=== PATIENT | female | born 1990 | race Caucasian/White ===

== ENCOUNTER 2017-06-21 18:14 | Emergency (ER) | payer SELFPAY ==
[2017-06-21 18:16] VITALS: BP 109/58; PULSE 115; RESP 20; TEMP 98.8; O2SAT 99
[2017-06-21] MEDS ORDERED: METH10TA PO (19:37)
[2017-06-21] MEDS ORDERED: SODIUM CHLOR 0.9% 1000 ML INJ 1,000 ML IV SCH (19:39)
--- NOTE | 2017-06-21 19:43 | PD ---
HPI Chief Complaint: Related Problem Time Seen by Provider: 19:30 Travel History International Travel<30 days: No Contact w/Intl Traveler<30days: No Traveled to known affect area: No History of Present Illness HPI This is a 26-year-old female who is 10 weeks'gestational age based on ultrasound on May 31 revealing an intrauterine in [facility]. She is complaining of nausea and vomiting. Symptoms started 2 days ago. She reports that throughout her she has had episodes of nausea and vomiting or this is her fourth visit to the hospital for treatment of this. She has been prescribed Zofran initially and then she was prescribed Phenergan. Most recently she was prescribed Reglan which is working well however she has run out. She denies cough, congestion, chest pain, shortness breath, abdominal pain, diarrhea, vaginal bleeding, vaginal discharge. She has no other complaints. 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 HEAD: Atraumatic. Normocephalic. EYES: Pupils equal and round. No scleral icterus. No injection or drainage. ENT: No nasal bleeding or discharge. Mucous membranes pink and moist. NECK: Trachea midline. No JVD. CARDIOVASCULAR: Regular rate and rhythm. No murmur appreciated. RESPIRATORY: No accessory muscle use. Clear to auscultation. Breath sounds equal bilaterally. GASTROINTESTINAL: Abdomen soft, non-tender, nondistended. Hepatic and splenic margins not palpable. MUSCULOSKELETAL: No obvious deformities. No clubbing. No cyanosis. No edema. NEUROLOGICAL: Awake and alert. No obvious cranial nerve deficits. Motor grossly within normal limits. Normal speech. PSYCHIATRIC: Appropriate mood and affect; insight and judgment normal. Data Data Last Documented VS Vital Signs Date Time Temp Pulse Resp B/P (MAP) Pulse Ox O2 Delivery O2 Flow Rate FiO2 06/21/17 18:16 98.8 115 20 109/58 (75) 99 Room Air Orders Orders Complete Blood Count With Diff (06/21/17 18:37) Basic Metabolic Panel (Bmp) (06/21/17 18:37) Urinalysis - C+S If Indicated (06/21/17 18:37) Iv Access Insert/Monitor (06/21/17 19:39) Metoclopramide Inj (Reglan Inj) (06/21/17 19:45) Sodium Chlor 0.9% 1000 Ml Inj (Ns 1000 M (06/21/17 19:39) Urine Culture (06/21/17 19:50) Labs Laboratory Tests Test 06/21/17 19:50 White Blood Count 8.6 TH/MM3 Red Blood Count 4.20 MIL/MM3 Hemoglobin 12.9 GM/DL Hematocrit 37.4 % Mean Corpuscular Volume 89.0 FL Mean Corpuscular Hemoglobin 30.7 PG Mean Corpuscular Hemoglobin Concent 34.5 % Red Cell Distribution Width 13.7 % Platelet Count 211 TH/MM3 Mean Platelet Volume 8.4 FL Neutrophils (%) (Auto) 73.3 % Lymphocytes (%) (Auto) 16.6 % Monocytes (%) (Auto) 8.4 % Eosinophils (%) (Auto) 1.4 % Basophils (%) (Auto) 0.3 % Neutrophils # (Auto) 6.3 TH/MM3 Lymphocytes # (Auto) 1.4 TH/MM3 Monocytes # (Auto) 0.7 TH/MM3 Eosinophils # (Auto) 0.1 TH/MM3 Basophils # (Auto) 0.0 TH/MM3 CBC Comment DIFF FINAL Differential Comment Urine Color YELLOW Urine Turbidity CLOUDY Urine pH 6.0 Urine Specific [place] 1.024 Urine Protein 30 mg/dL Urine Glucose (UA) NEG mg/dL Urine Ketones 40 mg/dL Urine Occult Blood NEG Urine Nitrite NEG Urine Bilirubin NEG Urine Urobilinogen 2.0 MG/DL Urine Leukocyte Esterase SMALL Urine RBC 2 /hpf Urine WBC 1 /hpf Urine Squamous Epithelial Cells 49 /hpf Urine Amorphous Sediment RARE Urine Bacteria MANY /hpf Urine Mucus FEW /lpf Microscopic Urinalysis Comment CULTURE INDICATED Blood Urea Nitrogen 5 MG/DL Creatinine 0.36 MG/DL Random Glucose 88 MG/DL Calcium Level 8.9 MG/DL Sodium Level 136 MEQ/L Potassium Level 3.6 MEQ/L Chloride Level 104 MEQ/L Carbon Dioxide Level 23.1 MEQ/L Anion Gap 9 MEQ/L Estimat Glomerular Filtration Rate 221 ML/MIN MDM Medical Decision Making Medical Screen Exam Complete: Yes Emergency Medical Condition: Yes Medical Record Reviewed: Yes Differential Diagnosis Nausea and vomiting in , hyperemesis gravidarum, dehydration, electrolyte abnormality Narrative Course The patient will be given IV fluids, she would prefer Reglan over Phenergan or Zofran. Reglan is category B and she understands this. Lab work and urinalysis were ordered in triage by the triage provider and are currently pending. Her urinalysis reveals many bacteria but it is a burning contaminated specimen with 49 squamous epithelial cells. Still, given her asymptomatic bacteriuria was discussed with the patient possibility of taking antibiotics however she does not want to take any antibiotics at this time he reports that they make her very nauseous. She will be discharged with a refill of her Reglan. Diagnosis Primary Impression: Nausea and vomiting during Additional Instructions: Reglan for nausea. Stay well hydrated. Follow-up with [facility]. Return for any emergent medical conditions. Med/Other Pt SpecificInfo: Prescription(s) given Scripts Metoclopramide (Reglan) 10 Mg Tab 10 MG PO TIDAC, #30 TAB 0 Refills Prov: Js Scott MD 06/21/17 Disposition: 01 DISCHARGE HOME Condition: Stable Jesus Vanegas Jun 21, 2017 19:43
[2017-06-21] MEDS ORDERED: METOCLOPRAMIDE HCL 10 MG/2 ML VIAL IV PUSH ONE (19:45)
[2017-06-21 20:15] LABS: BACTERIA, URINE MANY /hpf; BLOOD, URINE NEG (NEG); COMMENT (UR) CULTURE INDICATED; CULTURE IF INDICATED CULTURE INDICATED; GLUCOSE,URINE NEG (NEG); KETONE, URINE 40 mg/dL (NEG); MUCUS URINE FEW /lpf (OCC); NITRITE,URINE NEG (NEG); SQUAMOUS EPITHELIAL CELL URINE 49 /hpf (0-5); URINE COLOR YELLOW (YELLW/STRAW)
[2017-06-21 20:19] LABS: AUTOMATED NEUTROPHIL # 6.3 TH/MM3 (1.8-7.7); BASOPHIL % 0.3 % (0.0-2.0); EOSINOPHIL # 0.1 TH/MM3 (0-0.4); EOSINOPHIL % 1.4 % (0.0-4.0); HEMATOCRIT 37.4 % (35.0-46.0); HEMO FLAGS DIFF FINAL; LYMPH % 16.6 % (9.0-44.0); LYMPHOCYTE # 1.4 TH/MM3 (1.0-4.8); MEAN CORPUSCULAR HEMOGLOBIN 30.7 PG (27.0-34.0); MEAN CORPUSCULAR HGB CONC 34.5 % (32.0-36.0); MONO % 8.4 % (0.0-8.0); NEUT % 73.3 % (16.0-70.0); PLATELET COUNT 211 TH/MM3 (150-450); RED CELL DISTRIBUTION WIDTH 13.7 % (11.6-17.2); WHITE BLOOD COUNT 8.6 TH/MM3 (4.0-11.0)
[2017-06-21] MEDS ORDERED: REGL10TA5 PO (20:38)
[2017-06-21 20:51] LABS: BICARBONATE 23.1 MEQ/L (21.0-32.0); POTASSIUM 3.6 MEQ/L (3.5-5.1)
[2017-06-21 21:09] VITALS: BP 116/67
== END 2017-06-21 21:25 | disposition home or self-care (01) ==
LOC: NEPD 18:14
DX: O21.9 Vomiting of pregnancy, unspecified (principal); O99.341 Other mental disorders complicating pregnancy, first trimester; F41.8 Other specified anxiety disorders; O99.331 Smoking (tobacco) complicating pregnancy, first trimester; Z79.899 Other long term (current) drug therapy
CPT/HCPCS: 80048; 81001; 85025; 87086; 96374; 99284; J2765; J7030